=== PATIENT | male | born 1950 | race Caucasian/White ===

== ENCOUNTER → 2017-11-13 | Outpatient (CLI) | payer MEDICARE ==
[2015-04-18 11:25] VITALS: BP 106/65
[~2017-11-13] MED LIST: ALLOPURINOL300 MG PO; FISH OIL 1000MG1 CAP PO; LIPITOR 10MG10 MG PO; MULTIPLE VITAMI1 CAP PO; NEXIUM40 MG PO
== END ==
LOC: RAD 15:48
DX: R10.9 Unspecified abdominal pain (principal); R91.8 Other nonspecific abnormal finding of lung field; R93.5 Abnormal findings on diagnostic imaging of other abdominal regions, including retroperitoneum
CPT/HCPCS: Q9967

== ENCOUNTER → 2017-11-14 | Outpatient (CLI) | payer MEDICARE ==
[2015-04-18 11:25] VITALS: BP 106/65
== END ==
LOC: RAD 10:14
DX: R91.8 Other nonspecific abnormal finding of lung field (principal); R93.5 Abnormal findings on diagnostic imaging of other abdominal regions, including retroperitoneum
CPT/HCPCS: Q9967

== ENCOUNTER → 2017-11-15 | Outpatient (CLI) | payer MEDICARE ==
[2015-04-18 11:25] VITALS: BP 106/65
== END ==
LOC: VAS 15:50
DX: I08.1 Rheumatic disorders of both mitral and tricuspid valves (principal); I27.0 Primary pulmonary hypertension

== ENCOUNTER → 2018-02-08 | Outpatient (CLI) | payer MEDICARE ==
[2015-04-18 11:25] VITALS: BP 106/65
== END ==
LOC: RAD 09:27
DX: C78.89 Secondary malignant neoplasm of other digestive organs (principal); R91.8 Other nonspecific abnormal finding of lung field; K63.9 Disease of intestine, unspecified; K60.3 Anal fistula

== ENCOUNTER → 2018-04-08 | Outpatient (CLI) | payer MEDICARE ==
[2015-04-18 11:25] VITALS: BP 106/65
== END ==
LOC: RAD 08:53
DX: C78.89 Secondary malignant neoplasm of other digestive organs (principal); R91.8 Other nonspecific abnormal finding of lung field; Z95.828 Presence of other vascular implants and grafts

== ENCOUNTER → 2018-06-03 | Outpatient (CLI) | payer MEDICARE ==
[2015-04-18 11:25] VITALS: BP 106/65
== END ==
LOC: RAD 08:32
DX: C78.02 Secondary malignant neoplasm of left lung (principal); C78.01 Secondary malignant neoplasm of right lung; C25.9 Malignant neoplasm of pancreas, unspecified
CPT/HCPCS: Q9967

== ENCOUNTER → 2018-08-15 | Outpatient (CLI) | payer MEDICARE ==
[2015-04-18 11:25] VITALS: BP 106/65
== END ==
LOC: RAD 08:58
DX: C78.00 Secondary malignant neoplasm of unspecified lung (principal); K86.9 Disease of pancreas, unspecified; C25.9 Malignant neoplasm of pancreas, unspecified
CPT/HCPCS: Q9967

== ENCOUNTER → 2018-10-08 | Outpatient (CLI) | payer MEDICARE ==
[2015-04-18 11:25] VITALS: BP 106/65
== END ==
LOC: RAD 08:45
DX: C25.9 Malignant neoplasm of pancreas, unspecified (principal)
CPT/HCPCS: Q9967

== ENCOUNTER → 2018-12-23 | Outpatient (CLI) | payer MEDICARE ==
[2015-04-18 11:25] VITALS: BP 106/65
== END ==
LOC: RAD 07:35
DX: C25.1 Malignant neoplasm of body of pancreas (principal); R91.8 Other nonspecific abnormal finding of lung field; K86.9 Disease of pancreas, unspecified; K44.9 Diaphragmatic hernia without obstruction or gangrene; K76.89 Other specified diseases of liver; K60.4 Rectal fistula
CPT/HCPCS: Q9967

== ENCOUNTER → 2019-03-20 | Outpatient (CLI) | payer MEDICARE ==
[2015-04-18 11:25] VITALS: BP 106/65
== END ==
LOC: RAD 08:40
DX: C25.1 Malignant neoplasm of body of pancreas (principal); C78.00 Secondary malignant neoplasm of unspecified lung; K57.30 Diverticulosis of large intestine without perforation or abscess without bleeding; K63.89 Other specified diseases of intestine; Z95.9 Presence of cardiac and vascular implant and graft, unspecified
CPT/HCPCS: Q9967

== ENCOUNTER → 2019-04-19 | Outpatient (CLI) | payer MEDICARE ==
[~2019-04-19] VITALS: Ht 170.2 cm; Wt 70.2 kg
[2019-04-19 11:20] VITALS: BP 109/78
--- NOTE | 2019-04-19 11:40 | NUR ---
Pt arrives to outpatient clinic for Chemotherapy pump removal and port de-accessing. Dr. Wiggins calls at this time and gives VORB to Nery Hernandez RN to remove chemotherapy pump and deaccess port. Port flushed with 10 ml NS and 500 units of herapin, then deaccessed. White cap is placed on chemo line and chemo pump is placed in red biohazard bag and sealed. Patient reports he is supposed to take the pump back to the office. Patient states he will come back in approximately two weeks to have the same procedure done. This RN instructs patient to have Rosalie's office call the nurse's station 1 or 2 days prior to patient arriving so that orders can be given/ faxed over to deaccess port. Patient acknowledges understanding.
== END ==
LOC: AMSURD 11:02
DX: Z45.2 Encounter for adjustment and management of vascular access device (principal)
CPT/HCPCS: J1644

== ENCOUNTER → 2019-05-03 | Outpatient (CLI) | payer MEDICARE ==
[~2019-05-03] VITALS: Ht 170.2 cm; Wt 70.2 kg
[~2019-05-03] MED LIST changes: +LASIX20 M1 PO; +POTASSIUM CHLO10 ME7
[2019-05-03 11:18] VITALS: BP 106/79
== END ==
LOC: AMSURD 10:48
DX: C25.1 Malignant neoplasm of body of pancreas (principal)
CPT/HCPCS: J1644

== ENCOUNTER → 2019-05-17 | Outpatient (CLI) | payer MEDICARE ==
[~2019-05-17] VITALS: Ht 170.2 cm; Wt 70.2 kg
[~2019-05-17] MED LIST changes: +ZYLOPRIM300 MG PO
[2019-05-17 14:32] VITALS: BP 94/64
== END ==
LOC: AMSURD 09:17
DX: C25.1 Malignant neoplasm of body of pancreas (principal)
CPT/HCPCS: J1644

== ENCOUNTER → 2019-06-03 | Outpatient (CLI) | payer MEDICARE ==
[2019-05-31 11:25] VITALS: BP 90/69
== END ==
LOC: RAD 08:52
DX: C25.1 Malignant neoplasm of body of pancreas (principal); C78.00 Secondary malignant neoplasm of unspecified lung; K63.89 Other specified diseases of intestine
CPT/HCPCS: Q9967

== ENCOUNTER → 2019-06-14 | Outpatient (CLI) | payer MEDICARE ==
[~2019-06-14] VITALS: Ht 170.2 cm; Wt 70.2 kg
[2019-06-14 11:45] VITALS: BP 98/70
--- NOTE | 2019-06-14 12:00 | NUR ---
IV chemo pump therapy completed and disconnected. Line to port-a-cath flushed per orders and port-a-cath removed. No bleeding from site, and bandaid applied. Pump returned to pt and chemo medications disposed of.
== END ==
LOC: AMSURD 11:32
DX: C25.1 Malignant neoplasm of body of pancreas (principal)
CPT/HCPCS: J1644

== ENCOUNTER → 2019-06-28 | Outpatient (CLI) | payer MEDICARE ==
[~2019-06-28] VITALS: Ht 170.2 cm; Wt 70.2 kg
[2019-06-28 13:25] VITALS: BP 107/67
--- NOTE | 2019-06-28 13:29 | NUR ---
THE PT COMES TO HOSPITAL AN OUTPATIENT TO HAVE HIS CHEMOTHERAPY PUMP DISCONTINUED AND HIS PORT-A-CATH DEACCESED. THE PT'S PUMP IS DISCONTINUED AND THE CHEMOTHERAPY TUBING IS DISPOSED OF PROPERLY INTO THE CHEMOTHERAPY WASTE BAG WHICH IS THEN PLACED IN THE CHEMOTHERAPY WASTE BIN. THE PT'S PORT IS THEN FLUSHED WITH THE 10ML NS FLUSH AND THE HEPARIN FLUSH ORDERED.
== END ==
LOC: AMSURD 12:49
DX: C25.1 Malignant neoplasm of body of pancreas (principal)
CPT/HCPCS: J1644

== ENCOUNTER → 2019-07-12 | Outpatient (CLI) | payer MEDICARE ==
[~2019-07-12] VITALS: Ht 170.2 cm; Wt 70.2 kg
[2019-07-12 10:45] VITALS: BP 95/67
== END ==
LOC: AMSURD 10:03
DX: Z01.89 Encounter for other specified special examinations (principal)
CPT/HCPCS: J1644

== ENCOUNTER → 2019-07-26 | Outpatient (CLI) | payer MEDICARE ==
[~2019-07-26] VITALS: Ht 170.2 cm; Wt 70.2 kg
[2019-07-26 10:35] VITALS: BP 120/72
== END ==
LOC: AMSURD 10:26
DX: C25.1 Malignant neoplasm of body of pancreas (principal)
CPT/HCPCS: J1644

== ENCOUNTER → 2019-07-30 | Outpatient (CLI) | payer MEDICARE ==
[2019-07-26 10:35] VITALS: BP 120/72
== END ==
LOC: RAD 08:40
DX: C25.1 Malignant neoplasm of body of pancreas (principal); C78.00 Secondary malignant neoplasm of unspecified lung
CPT/HCPCS: Q9967

== ENCOUNTER → 2019-08-09 | Outpatient (CLI) | payer MEDICARE ==
[~2019-08-09] VITALS: Ht 170.2 cm; Wt 70.2 kg
[2019-08-09 11:50] VITALS: BP 96/67
== END ==
LOC: AMSURD 11:34
DX: C25.1 Malignant neoplasm of body of pancreas (principal)
CPT/HCPCS: J1644

== ENCOUNTER → 2019-08-23 | Outpatient (CLI) | payer MEDICARE ==
[~2019-08-23] VITALS: Ht 170.2 cm; Wt 70.2 kg
[2019-08-23 11:30] VITALS: BP 130/68
--- NOTE | 2019-08-23 11:30 | NUR ---
The pt's chemo pump is discontinued and the pt's port-a-cath is de-accessed. The port-a-cath is flushed with normal saline and the ordered heparin flush. The pt is stable and respirations are even and unlabored. No redness, swelling, or drainage is noted at port-a-cath site.
== END ==
LOC: AMSURD 09:54
DX: C25.1 Malignant neoplasm of body of pancreas (principal)
CPT/HCPCS: J1644

== ENCOUNTER → 2019-09-06 | Outpatient (CLI) | payer MEDICARE ==
[~2019-09-06] VITALS: Ht 170.2 cm; Wt 70.2 kg
[2019-09-06 10:50] VITALS: BP 97/67
== END ==
LOC: AMSURD 10:36
DX: C25.1 Malignant neoplasm of body of pancreas (principal)
CPT/HCPCS: J1644

== ENCOUNTER → 2019-09-10 | Outpatient (CLI) | payer MEDICARE ==
[2019-09-06 10:50] VITALS: BP 97/67
== END ==
LOC: RAD 09:30
DX: C25.1 Malignant neoplasm of body of pancreas (principal); C78.02 Secondary malignant neoplasm of left lung; C78.01 Secondary malignant neoplasm of right lung; D49.0 Neoplasm of unspecified behavior of digestive system; I26.99 Other pulmonary embolism without acute cor pulmonale; K74.60 Unspecified cirrhosis of liver; J18.1 Lobar pneumonia, unspecified organism; K44.9 Diaphragmatic hernia without obstruction or gangrene
CPT/HCPCS: Q9967